=== PATIENT | male | born 1960 | race Hispanic/Latino ===

== ENCOUNTER 2023-07-29 20:04 | Emergency (ER) | payer MEDICARE ==
[2023-07-29] MEDS ORDERED: Etomidate 40 MG (20 mL) VIAL ONE (20:18)
[2023-07-29] MEDS ORDERED: Sodium Chloride 0.9% 1,000 ML ONE ×2 (20:20→20:52)
[2023-07-29] MEDS ORDERED: Amiodarone In Dextrose 100 ML ONE (20:23)
[2023-07-29] MEDS ORDERED: Amiodarone 150 MG/3 ML VIAL ONE (20:24)
[2023-07-29 20:28] LABS: #Basophils 0.2 thou/uL (0.0-0.2); #Eosinphils 0.1 thou/uL (0.0-0.7); #Lymphocytes 1.6 thou/uL (1.20-3.40); #Monocytes 1.2 thou/uL (0.11-0.59); #Neutrophils 16.7 thou/uL (1.40-6.50); %Basophils 0.8 % (0.0-1.0); %Eosinophils 0.3 % (0.0-10.0); %Lymphocytes 7.9 % (21.0-51.0); %Monocytes 6.2 % (0.0-10.0); %Neutrophils 84.7 % (42.0-75.0); Mean Corpuscular HGB CONC 33.9 g/dL (32.0-36.0); Mean Corpuscular Hemoglobin 29.9 pg (27.0-31.0); Mean Corpuscular Volume 88.2 fl (78.0-98.0); Platelet Count 247 10x3/uL (130-400); RBC Distribution Width 11.9 % (11.5-14.5); Red Blood Cell (RBC) Count 5.67 mill/uL (4.70-6.10); White Blood Cell (WBC) Count 19.7 10x3/uL (4.8-10.8)
[2023-07-29 20:39] LABS: ALT (SGPT) 18 U/L (8-55); AST (SGOT) 17 U/L (5-34); Alkaline Phosphatase 54 U/L (40-110); Anion Gap 16 mmol/L (10-20); BUN (Urea Nitrogen) 21 mg/dL (8.4-25.7); Bilirubin, Total 1.6 mg/dL (0.2-1.2); Calc. Creatinine Clearance 0 mL/min (70-130); Calcium 9.4 mg/dL (7.8-10.44); Carbon Dioxide 26 mmol/L (23-31); Chloride 96 mmol/L (98-107); Estimated GFR 63; Globulin 3.3 g/dL (2.4-3.5); Glucose 157 mg/dL (80-115); Potassium 3.9 mmol/L (3.5-5.1); Protein, Total 7.3 g/dL (5.8-8.1); Sodium 134 mmol/L (136-145); Troponin I Less than 0.010 ng/mL (< 0.028)
[2023-07-29 20:58] LABS: Magnesium 1.6 mg/dL (1.6-2.6)
[2023-07-29 21:54] LABS: Base Excess-Venous 4.2 mmol/L (-2.0 to 3.0); Bicarbonate (HCO3v) 25.7 mmol/L (22.0-28.0); CO2 Tension (PvCO2) 29.4 mmHg (42.0-51.0); Chloride 100 mmol/L (98-107); Hemoglobin - Calc 14.9 g/dL (14.0-18.0); Potassium 3.5 mmol/L (3.5-5.1); Sodium 137 mmol/L (138-145)
[2023-07-29 21:55] LABS: Calcium, Ionized 0.98 mmol/L (1.15-1.33); T. Carbon Dioxide 26.6 mmol/L (22.0-28.0)
== END 2023-07-29 21:37 | disposition short-term general hospital (02) ==
LOC: NAV ERS 20:04
DX: I47.20 Ventricular tachycardia, unspecified (principal); I11.0 Hypertensive heart disease with heart failure; I50.9 Heart failure, unspecified
CPT/HCPCS: 71045; 80053; 82330; 82803; 83735; 84484; 85025; 93005; 96374; 96375; J0282; J0283; J7050

== ENCOUNTER 2024-02-19 01:08 | Emergency (ER) | payer MEDICARE ==
[2024-02-19] MEDS ORDERED: Mag-Al Plus 1200/1200/120 MG (30 mL) UDCUP ONE (01:29)
[2024-02-19] MEDS ORDERED: Lidocaine 2% Viscous 100 ML BOTTLE ONE (01:29)
== END 2024-02-19 02:10 | disposition home or self-care (01) ==
LOC: NAV ERS 01:08
DX: R12 Heartburn (principal); I11.0 Hypertensive heart disease with heart failure; I50.9 Heart failure, unspecified; Z79.899 Other long term (current) drug therapy
CPT/HCPCS: 93005; 99283

== ENCOUNTER 2024-07-17 13:47 | Emergency (ER) | payer MEDICARE | END 2024-07-17 14:04 | disposition home or self-care (01) | LOC: NAV ERS 13:47 | DX: Z76.0 Encounter for issue of repeat prescription (principal); I11.0 Hypertensive heart disease with heart failure; I50.9 Heart failure, unspecified; Z79.899 Other long term (current) drug therapy; Z55.6 Problems related to health literacy | CPT/HCPCS: 99281 ==